=== PATIENT | female | born 1980 | race Caucasian/White ===

== ENCOUNTER → 2020-04-26 | Outpatient (CLI) | payer BC | LOC: HYPER 08:39 | PROVIDERS: ATTEND Emergency Medicine | DX: E10.622 Type 1 diabetes mellitus with other skin ulcer (principal); L97.812 Non-pressure chronic ulcer of other part of right lower leg with fat layer exposed; S81.811A Laceration without foreign body, right lower leg, initial encounter; E66.01 Morbid (severe) obesity due to excess calories; Z79.4 Long term (current) use of insulin; Z68.43 Body mass index [BMI] 50.0-59.9, adult; W22.8XXA Striking against or struck by other objects, initial encounter; Y93.89 Activity, other specified; Y92.89 Other specified places as the place of occurrence of the external cause; Y99.8 Other external cause status ==

== ENCOUNTER → 2020-05-09 | Outpatient (CLI) | payer BC | LOC: HYPER 08:33 | PROVIDERS: ATTEND Emergency Medicine | DX: S81.811D Laceration without foreign body, right lower leg, subsequent encounter (principal); S81.801D Unspecified open wound, right lower leg, subsequent encounter; E10.9 Type 1 diabetes mellitus without complications; E66.01 Morbid (severe) obesity due to excess calories; Z79.4 Long term (current) use of insulin; Z68.43 Body mass index [BMI] 50.0-59.9, adult; W22.8XXD Striking against or struck by other objects, subsequent encounter ==

== ENCOUNTER → 2020-05-23 | Outpatient (CLI) | payer BC | LOC: HYPER 15:04 | PROVIDERS: ATTEND Emergency Medicine | DX: S81.811D Laceration without foreign body, right lower leg, subsequent encounter (principal); E66.01 Morbid (severe) obesity due to excess calories; Z79.4 Long term (current) use of insulin; Z68.43 Body mass index [BMI] 50.0-59.9, adult; W22.8XXD Striking against or struck by other objects, subsequent encounter ==

== ENCOUNTER → 2020-06-07 | Outpatient (CLI) | payer BC | LOC: HYPER 15:08 | PROVIDERS: ATTEND Emergency Medicine | DX: S81.811D Laceration without foreign body, right lower leg, subsequent encounter (principal); E66.01 Morbid (severe) obesity due to excess calories; Z79.4 Long term (current) use of insulin; Z68.43 Body mass index [BMI] 50.0-59.9, adult; W22.8XXD Striking against or struck by other objects, subsequent encounter ==

== ENCOUNTER → 2020-06-21 | Outpatient (CLI) | payer BC | LOC: HYPER 15:36 | PROVIDERS: ATTEND Emergency Medicine | DX: S81.811D Laceration without foreign body, right lower leg, subsequent encounter (principal); S81.801D Unspecified open wound, right lower leg, subsequent encounter; E10.9 Type 1 diabetes mellitus without complications; E66.01 Morbid (severe) obesity due to excess calories; Z79.4 Long term (current) use of insulin; Z68.43 Body mass index [BMI] 50.0-59.9, adult; W22.8XXD Striking against or struck by other objects, subsequent encounter ==

== ENCOUNTER → 2020-07-18 | Outpatient (CLI) | payer BC | LOC: HYPER 13:35 | PROVIDERS: ATTEND Emergency Medicine | DX: E10.622 Type 1 diabetes mellitus with other skin ulcer (principal); L97.812 Non-pressure chronic ulcer of other part of right lower leg with fat layer exposed; S81.801D Unspecified open wound, right lower leg, subsequent encounter; S81.811D Laceration without foreign body, right lower leg, subsequent encounter; E66.01 Morbid (severe) obesity due to excess calories; Z79.4 Long term (current) use of insulin; Z68.43 Body mass index [BMI] 50.0-59.9, adult; W22.8XXD Striking against or struck by other objects, subsequent encounter ==

== ENCOUNTER → 2020-07-27 | Outpatient (CLI) | payer BC | LOC: HYPER 13:20 | PROVIDERS: ATTEND Emergency Medicine | DX: E10.622 Type 1 diabetes mellitus with other skin ulcer (principal); L97.812 Non-pressure chronic ulcer of other part of right lower leg with fat layer exposed; S81.801D Unspecified open wound, right lower leg, subsequent encounter; S81.811D Laceration without foreign body, right lower leg, subsequent encounter; E66.01 Morbid (severe) obesity due to excess calories; Z79.4 Long term (current) use of insulin; Z68.43 Body mass index [BMI] 50.0-59.9, adult; W22.8XXD Striking against or struck by other objects, subsequent encounter ==

== ENCOUNTER → 2020-08-17 | Outpatient (CLI) | payer BC | LOC: HYPER 13:52 | PROVIDERS: ATTEND Emergency Medicine | DX: S81.801D Unspecified open wound, right lower leg, subsequent encounter (principal); S81.811D Laceration without foreign body, right lower leg, subsequent encounter; E10.622 Type 1 diabetes mellitus with other skin ulcer; L97.812 Non-pressure chronic ulcer of other part of right lower leg with fat layer exposed; J30.2 Other seasonal allergic rhinitis; E66.9 Obesity, unspecified; Z68.43 Body mass index [BMI] 50.0-59.9, adult; Z79.4 Long term (current) use of insulin; X58.XXXD Exposure to other specified factors, subsequent encounter ==

== ENCOUNTER → 2020-09-07 | Outpatient (CLI) | payer OTHER | LOC: HYPER 13:21 | PROVIDERS: ATTEND Emergency Medicine | DX: S81.801D Unspecified open wound, right lower leg, subsequent encounter (principal); S81.811D Laceration without foreign body, right lower leg, subsequent encounter; E11.622 Type 2 diabetes mellitus with other skin ulcer; L97.812 Non-pressure chronic ulcer of other part of right lower leg with fat layer exposed; E66.01 Morbid (severe) obesity due to excess calories; Z68.43 Body mass index [BMI] 50.0-59.9, adult; Z79.4 Long term (current) use of insulin; W22.8XXD Striking against or struck by other objects, subsequent encounter ==

== ENCOUNTER → 2020-09-21 | Outpatient (CLI) | payer OTHER | LOC: HYPER 14:25 | PROVIDERS: ATTEND Emergency Medicine | DX: S81.801D Unspecified open wound, right lower leg, subsequent encounter (principal); S81.811D Laceration without foreign body, right lower leg, subsequent encounter; E11.622 Type 2 diabetes mellitus with other skin ulcer; L97.812 Non-pressure chronic ulcer of other part of right lower leg with fat layer exposed; E66.01 Morbid (severe) obesity due to excess calories; Z68.43 Body mass index [BMI] 50.0-59.9, adult; Z79.4 Long term (current) use of insulin; W22.8XXD Striking against or struck by other objects, subsequent encounter ==